=== PATIENT | male | born 1985 | race African-American/Black ===

== ENCOUNTER 2017-02-17 13:05 | Emergency (ER) | payer OTHER, SELFPAY ==
[2017-02-17] MEDS ORDERED: Acetaminophen 500 MG TAB ONE (13:13)
[2017-02-17] MEDS ORDERED: Ketorolac Tromethamine 60 MG/2 ML VIAL ONE (13:22)
[2017-02-17] MEDS ORDERED: Sodium Chloride 0.9% 1,000 ML ONE (14:38)
[2017-02-17 15:10] LABS: ALT (SGPT) 26 U/L (8-55); AST (SGOT) 23 U/L (5-34); Alkaline Phosphatase 51 U/L (40-150); Anion Gap 13 mmol/L (10-20); BUN (Urea Nitrogen) 13 mg/dL (8.9-20.6); Bilirubin, Total 0.9 mg/dL (0.2-1.2); Calc. Creatinine Clearance 0 mL/min (70-130); Calcium 9.5 mg/dL (7.8-10.44); Carbon Dioxide 24 mmol/L (22-29); Chloride 102 mmol/L (98-107); Estimated GFR-MDRD 87; Globulin 3.7 g/dL (2.4-3.5); Glucose 123 mg/dL (70-105); Potassium 3.4 mmol/L (3.5-5.1); Protein, Total 7.7 g/dL (6.0-8.3); Sodium 136 mmol/L (136-145)
[2017-02-17 15:14] LABS: #Basophils 0.1 thou/uL (0.0-0.2); #Eosinphils 0.1 thou/uL (0.0-0.7); #Monocytes 0.9 thou/uL (0.11-0.59); #Neutrophils 10.9 thou/uL (1.40-6.50); %Basophils 0.5 % (0.0-1.0); %Eosinophils 0.6 % (0.0-10.0); Hemoglobin 13.1 g/dL (14.0-18.0); Mean Corpuscular HGB CONC 33.4 g/dL (32.0-36.0); Mean Corpuscular Hemoglobin 29.3 pg (27.0-31.0); Mean Corpuscular Volume 87.7 fl (80.0-94.0); Mean Platelet Volume 9.7 fL (7.4-10.4); Platelet Count 141 thou/uL (130-400); RBC Distribution Width 10.2 % (11.5-14.5); Red Blood Cell (RBC) Count 4.49 mill/uL (4.70-6.10); White Blood Cell (WBC) Count 12.9 thou/uL (4.8-10.8)
== END 2017-02-17 15:55 | disposition home or self-care (01) ==
LOC: NAV ERS 13:05
DX: J01.90 Acute sinusitis, unspecified (principal)
CPT/HCPCS: 80053; 85025; 87040; 87081; 87430; 96360; 96372; J1885; J7050

== ENCOUNTER 2021-06-11 15:58 | Emergency (ER) | payer SELFPAY ==
[2021-06-11 16:55] LABS: Bilirubin Negative (Negative); Blood, Urine Negative (Negative); Clarity Clear (Clear); Glucose, Urine (Dipstick) Negative (Negative); Ketone, Urine Negative (Negative); Leukocyte Negative (Negative); Nitrite Negative (Negative); Protein, Urine (Dipstick) Negative (Neg-Trace); Specific Gravity, Urine 1.025 (1.005-1.030)
[2021-06-11] MEDS ORDERED: cefTRIAXone\\ROCEPHIN 500 MG VIAL ONE (17:39)
[2021-06-11] MEDS ORDERED: Lidocaine 1% (PF) 30 ML VIAL ONE (17:39)
== END 2021-06-11 17:58 | disposition home or self-care (01) ==
LOC: NAV ERS 15:58
DX: R30.0 Dysuria (principal)
CPT/HCPCS: 81003; 96372; 99283; J0696; J2001

== ENCOUNTER 2022-07-18 23:00 | Emergency (ER) | payer SELFPAY ==
[2022-07-18] MEDS ORDERED: Bacitracin 1 PK ONE (23:21)
[2022-07-18] MEDS ORDERED: Ibuprofen 200 MG TAB ONE (23:37)
== END 2022-07-18 23:40 | disposition home or self-care (01) ==
LOC: NAV ERS 23:00
DX: S01.01XA Laceration without foreign body of scalp, initial encounter (principal); Y00.XXXA Assault by blunt object, initial encounter
CPT/HCPCS: 12001

== ENCOUNTER 2022-07-29 16:02 | Emergency (ER) | payer SELFPAY | END 2022-07-29 16:32 | disposition home or self-care (01) | LOC: NAV ERS 16:02 | DX: S01.01XD Laceration without foreign body of scalp, subsequent encounter (principal); X58.XXXD Exposure to other specified factors, subsequent encounter ==